=== PATIENT | female | born 1975 | race Caucasian/White ===

== ENCOUNTER → 2024-07-06 10:07 | Outpatient (REF) | payer OTHER, SELFPAY ==
[2024-07-07 16:26] LABS: Mumps Virus IgG Positive; Rubeola (Measles) IgG Positive; Varicella Zoster IgG (VZV) Positive
[2024-07-07 18:46] LABS: Hepatitis B Surface Antibody Negative
[2024-07-07 19:44] LABS: Rubella Positive
[2024-07-08 08:15] LABS: Quantiferon Mitogen minus NIL 9.97 IU/mL; Quantiferon NIL 0.03 IU/mL; Quantiferon Plus TB2 minus NIL 0.01 IU/mL (<=0.34); Quantiferon TB Gold Plus Negative (Negative)
== END ==
LOC: REG 10:07
PROVIDERS: ATTENDING PHYSICIAN Nurse Practitioner Family; FAMILY PHYSICIAN Nurse Practitioner Primary Care
DX: Z23 Encounter for immunization (principal)
CPT/HCPCS: 36415; 86480; 86706; 86735; 86762; 86765; 86787